=== PATIENT | male | born 1975 | race Hispanic/Latino ===

== ENCOUNTER 2017-03-28 19:40 | Emergency (ER) | payer MEDICARE, OTHER ==
[2017-03-28 19:40] VITALS: BMI 38.3
[2017-03-28 20:28] VITALS: BP 123/88; PULSE 101; RESP 20; TEMP 98.2; O2SAT 98
--- NOTE | 2017-03-28 20:52 | C.PDOC ---
History Of Present Illness 41 yo male come in for evaluation of Right eye redness noted since today afternoon after " scratch my eye". Pt sts, felt like eye lashes got into my right eye and I pulled eye". Otherwise, pt denies headache, dizziness, visual changes, blurry vision, double vision, floaters, eye discharges, recent illness , neck pain, CP, SOB, dyspnea, palpitation, abd. pain, N/V/D, denies nay other active complaints. Ambulate to ED for evaluation, not in any apparent distress. Time Seen by Provider: 03/28/17 20:42 Chief Complaint (Nursing): Eye Problem History Per: Patient Past Medical History Reviewed: Historical Data, Nursing Documentation, Vital Signs Vital Signs: Last Vital Signs Temp 98.2 F 03/28/17 20:23 Pulse 101 H 03/28/17 20:23 Resp 20 03/28/17 20:23 BP 123/88 03/28/17 20:23 Pulse Ox 98 03/28/17 20:54 - Medical History PMH: Bipolar Disorder, GERD, Schizophrenia Surgical History: Appendectomy Family History: States: Unknown Family Hx - Social History Hx Tobacco Use: No Hx Alcohol Use: No Hx Substance Use: No - Immunization History Hx Tetanus Toxoid Vaccination: No Hx Influenza Vaccination: No Hx Pneumococcal Vaccination: No Review Of Systems Except As Marked, All Systems Reviewed And Found Negative. Constitutional: Negative for: Fever, Chills Eyes: Positive for: Redness. Negative for: Pain, Vision Change ENT: Negative for: Throat Pain, Throat Swelling Cardiovascular: Negative for: Chest Pain, Palpitations, Edema, Light Headedness Respiratory: Negative for: Cough, Shortness of Breath, Wheezing Gastrointestinal: Negative for: Nausea, Vomiting, Abdominal Pain Musculoskeletal: Negative for: Neck Pain Neurological: Negative for: Weakness, Numbness, Altered Mental Status, Headache , Dizziness Physical Exam - Physical Exam Appears: Well, Non-toxic, No Acute Distress Skin: Normal Color, Warm, No Rash Head: Atraumatic, Normacephalic Eye(s): bilateral: PERRL, EOMI (NO PAIN OR LIMITATION ON EXTRAOCULAR MOVEMENT), right: Other (SMALL SUBCONJUNCTIVAL HEMORRHAGE AT 7 O'CLOCK, NO PERIOBIRLA EDEMA OR ERYTHEMA, NO TENDERNESS) Ear(s): Bilateral: Normal Nose: No Flaring, No Discharge Oral Mucosa: Moist, No Drooling Tongue: Normal Appearing, No Swelling Lips: Normal Appearing, No Swelling Throat: No Erythema, No Drooling Neck: Supple Cardiovascular: Rhythm Regular, No Murmur, No JVD, Other ((-) CAROTID BRUITS) Respiratory: No Decreased Breath Sounds, No Accessory Muscle Use, No Stridor, No Wheezing Gastrointestinal/Abdominal: Soft, No Tenderness Extremity: No Normal ROM, No Pedal Edema Neurological/Psych: Oriented x3, Normal Speech ED Course And Treatment O2 Sat by Pulse Oximetry: 98 Pulse Ox Interpretation: Normal Progress Note: On re-evaluation, pt is awake, alert, not in any apparent distress. Ambulatorty in Ed with stable gait. PUlseOx 98% RA. ENT: no acute findings. Left eye: small subconjuctival hemorrhage noted. no discharges. No pain or limitation on extraocular movement. No periorbital edema or erythema. VA: R20/25, L20/25, B/L 20/25 w/o correction. neck: SUpple, (-) JVD, (-) carotid bruits B?L. Lungs: CTA B/L, BS equal B/L. CVS: (+)S1S2, reg. Abd: benign. Neuorlogicaly intact. Patient advised. Ref. to Follow up with Opht in 1-2 days for re-eavl. return to ED if any worsening or new changes. Disposition Counseled Patient/Family Regarding: Diagnosis, Need For Followup - Disposition Referrals: Issa Carrera [Staff Provider] - Disposition Time: 20:49 Condition: STABLE Additional Instructions: ICE TO RIGHT EYE AREA AVOID RUBBING RIGHT EYE FOLLOW UP WITH OPHTHALMOLOGY IN 2-3 DAYS FOR RE-EVALUATION. RETURN TO ED IF ANY WORSENING OR NEW CHANGES. Instructions: Subconjunctival Hemorrhage (ED) Forms: [facility] (Gabonese) - Clinical Impression Clinical Impression: Subconjunctival hemorrhage
== END 2017-03-28 20:58 | disposition home or self-care (01) ==
LOC: C.ER 19:40
DX: H11.31 Conjunctival hemorrhage, right eye (principal)

== ENCOUNTER 2017-11-13 08:07 | Emergency (ER) | payer MEDICARE, OTHER ==
[2017-11-13 08:07] VITALS: BMI 38.3
[2017-11-13 08:18] VITALS: BP 143/99; PULSE 91; RESP 16; TEMP 98.3; O2SAT 96
--- NOTE | 2017-11-13 08:24 | C.PDOC ---
History Of Present Illness 42 yo male come in for evaluation of sore throat, dry cough since this AM. Otherwise, denies high fever, chills, headache, drooling, dysphagia, dyspnea, CP , SOB, wheezing, abd. pain, N/V/D, back pain, UTI sx. Ambulate to Ed for evaluation, not in any apparent distress. Time Seen by Provider: 11/13/17 08:17 Chief Complaint (Nursing): ENT Problem History Per: Patient Past Medical History Reviewed: Historical Data, Nursing Documentation, Vital Signs Vital Signs: Last Vital Signs Temp 98.3 F 11/13/17 08:10 Pulse 91 H 11/13/17 08:10 Resp 16 11/13/17 08:10 BP 143/99 H 11/13/17 08:10 Pulse Ox 96 11/13/17 08:10 - Medical History PMH: Bipolar Disorder, Bronchitis, GERD, HTN, Schizophrenia Surgical History: Appendectomy Family History: States: Unknown Family Hx - Social History Hx Tobacco Use: No Hx Alcohol Use: No Hx Substance Use: No - Immunization History Hx Tetanus Toxoid Vaccination: No Hx Influenza Vaccination: No Hx Pneumococcal Vaccination: No Review Of Systems Except As Marked, All Systems Reviewed And Found Negative. Constitutional: Negative for: Fever, Chills ENT: Positive for: Nose Congestion, Throat Pain. Negative for: Ear Discharge, Nose Discharge, Throat Swelling Cardiovascular: Negative for: Chest Pain, Palpitations Respiratory: Positive for: Cough. Negative for: Shortness of Breath, Wheezing Gastrointestinal: Negative for: Nausea, Vomiting, Abdominal Pain, Diarrhea Genitourinary: Negative for: Dysuria Musculoskeletal: Negative for: Neck Pain, Back Pain Skin: Negative for: Rash Neurological: Negative for: Headache, Dizziness Physical Exam - Physical Exam Appears: Well, Non-toxic, No Acute Distress Skin: Normal Color, Warm, Dry, No Rash Head: Normacephalic Eye(s): bilateral: PERRL Ear(s): Bilateral: Normal Nose: No Flaring, No Discharge Oral Mucosa: Moist, No Drooling Tongue: Normal Appearing Lips: Normal Appearing Throat: No Erythema, No Drooling Neck: Normal ROM, Trachea Midline, Supple Cardiovascular: Rhythm Regular, No Murmur, No JVD Respiratory: No Decreased Breath Sounds, No Accessory Muscle Use, No Stridor, No Wheezing Gastrointestinal/Abdominal: Soft, No Tenderness Back: No CVA Tenderness Extremity: Normal ROM, No Pedal Edema, No Deformity, No Swelling Neurological/Psych: Oriented x3, Normal Speech ED Course And Treatment O2 Sat by Pulse Oximetry: 96 Pulse Ox Interpretation: Normal Progress Note: On re-evaluation, pt is afebrile, hemodynamicaly stable. Ambulatory in ED with stable gait. PulsEOx 96% RA. ENT: no acute findings, uvula midline, no edema. neck: Supple, (-) meningeal sign. Lungs: CTA B/L, BS equal B/L. CVS: (+)S1S2, reg. Abd: benign, (-) guarding, (-) rebound, (-) RLQ tenderness. back: (-) CVA tenderness. Neurologicaly intact. Pt has clinical findings c/w URI. Pt advised. ref. to f/u with PMD in 2-3 days for re-eval. return to ED if any worsening or new changes. Disposition Counseled Patient/Family Regarding: Diagnosis, Need For Followup, Rx Given - Disposition Referrals: [facility] [Outside] Disposition: HOME/ ROUTINE Disposition Time: 08:21 Condition: STABLE Additional Instructions: Encourage fluids take medication as need Follow up with PMD in 2-3 days for re-evaluation. return to ED if any worsening or new changes. Prescriptions: Benzonatate [Tessalon Perle] 100 mg PO TID #14 capsule Ibuprofen [Motrin Tab] 600 mg PO TID #20 tab Instructions: Viral Upper Respiratory Infection, Adult (DC) Forms: [facility] (Mauritian), Work Excuse - Clinical Impression Clinical Impression: Upper respiratory infection
== END 2017-11-13 08:35 | disposition home or self-care (01) ==
LOC: C.ER 08:07
DX: J06.9 Acute upper respiratory infection, unspecified (principal)

== ENCOUNTER 2017-12-04 17:26 | Emergency (ER) | payer MEDICARE ==
[2017-12-04 17:27] VITALS: BMI 38.3
[2017-12-04 17:44] VITALS: O2SAT 97
--- NOTE | 2017-12-04 19:08 | C.PDOC ---
History Of Present Illness 42 year old male with a history of schizophrenia and TMJ presents to the emergency department with complaints of gingival pain and swelling which started today. Patient states that he has been having this pain intermittently, but recently it has been persistent. Patient states that he has not visited a dentist in years. He reports no difficulty breathing or swallowing, no chest pain or fever. Time Seen by Provider: 12/04/17 18:53 Chief Complaint (Nursing): Dental Pain History Per: Patient History/Exam Limitations: no limitations Onset/Duration Of Symptoms: Hrs Current Symptoms Are (Timing): Still Present Quality: Positive for: "Pain" Past Medical History Reviewed: Historical Data, Nursing Documentation, Vital Signs Vital Signs: Last Vital Signs Temp 97.6 F 12/04/17 19:43 Pulse 86 12/04/17 19:43 Resp 18 12/04/17 19:43 BP 132/88 12/04/17 19:43 Pulse Ox 97 12/04/17 21:29 - Medical History PMH: Bipolar Disorder, Bronchitis, GERD, HTN, Schizophrenia Denies: Chronic Kidney Disease Other PMH: TMJ Surgical History: Appendectomy Family History: States: Unknown Family Hx - Social History Hx Tobacco Use: No Hx Alcohol Use: No Hx Substance Use: No - Immunization History Hx Tetanus Toxoid Vaccination: No Hx Influenza Vaccination: Yes Hx Pneumococcal Vaccination: No Review Of Systems Except As Marked, All Systems Reviewed And Found Negative. Constitutional: Negative for: Fever ENT: Positive for: Mouth Pain (gingival pain), Mouth Swelling (gingival swelling ). Negative for: Other (difficulty swallowing) Cardiovascular: Negative for: Chest Pain Respiratory: Negative for: Cough, Shortness of Breath Physical Exam - Physical Exam Appears: Non-toxic, No Acute Distress Skin: Warm, Dry Head: Atraumatic, Normacephalic Eye(s): bilateral: Normal Inspection, EOMI Nose: Normal Oral Mucosa: Moist Tongue: No Swelling Lips: No Swelling Teeth: No Normal Dentition, Tender To Palpation (left mandibullar), Other (poor dentition) Gingiva: Erythema, Swelling, Tender ((+) diffuse tenderness with swelling and erythema to the gingiva, worse at the right maxilla with some bleeding), Bleeding (some bleeding) Throat: Normal, No Erythema, No Exudate Neck: Normal, Normal ROM, Supple Lymphatic: Normal Exam Chest: Symmetrical Cardiovascular: Rhythm Regular Respiratory: Normal Breath Sounds, No Accessory Muscle Use, No Rales, No Rhonchi , No Wheezing Neurological/Psych: Oriented x3, Normal Speech, Normal Cognition ED Course And Treatment O2 Sat by Pulse Oximetry: 97 (RA) Pulse Ox Interpretation: Normal Progress Note: Plan: Amoxil 500mg PO. Motrin 600mg PO. PT admits to not brushing regularly. Discussed hygeine and strict follow up. Patient instructed to follow-up with a dentist in 1-2 days. Disposition - Disposition Referrals: [facility] [Outside] Disposition: HOME/ ROUTINE Disposition Time: 19:23 Condition: STABLE Additional Instructions: [place] your teeth regularly. Use mouth wash. Follow up with the dentist on Thursday. Return to ER if symptoms persist or worsen. Prescriptions: Amoxicillin 875 mg PO BID #20 tablet Instructions: Dental Pain (DC) Forms: [facility] (Mohawk) - Clinical Impression Clinical Impression: Gingivitis, Pain, dental - PA / HAMMER FITTER / Resident Statement MD/DO has reviewed & agrees with the documentation as recorded. - Scribe Statement The provider has reviewed the documentation as recorded by the Scribe (Bayron Carroll) All medical record entries made by the Scribe were at my direction and personally dictated by me. I have reviewed the chart and agree that the record accurately reflects my personal performance of the history, physical exam, medical decision making, and the department course for this patient. I have also personally directed, reviewed, and agree with the discharge instructions and disposition.
[2017-12-04 19:45] VITALS: BP 132/88; PULSE 86; RESP 18; TEMP 97.6
== END 2017-12-04 19:59 | disposition home or self-care (01) ==
LOC: C.ER 17:26
DX: K05.10 Chronic gingivitis, plaque induced (principal); K08.89 Other specified disorders of teeth and supporting structures; I10 Essential (primary) hypertension; F20.9 Schizophrenia, unspecified

== ENCOUNTER 2018-02-09 08:12 | Emergency (ER) | payer MEDICARE ==
[2018-02-09 08:12] VITALS: BMI 38.3
[2018-02-09 08:18] VITALS: BP 139/98; PULSE 80; RESP 18; TEMP 98; O2SAT 97
--- NOTE | 2018-02-09 08:50 | C.PDOC ---
History Of Present Illness 42 yo male w/o significant PMHx come in for evaluation of cold sx since today AM. pt sts, " woke up today feeling sinusi". Otherwise, pt denies fever, chills, headache, dizziness, sore throat, neck pain, cough, drooling, dysphagia, dyspnea, SOB, wheezing, abd. pain, V/D, back pain, UTI sx. Ambulate to Ed for evaluation, not in nay apparent distress. Time Seen by Provider: 02/09/18 08:21 Chief Complaint (Nursing): Cough, Cold, Congestion History Per: Patient Past Medical History Reviewed: Historical Data, Nursing Documentation, Vital Signs Vital Signs: Last Vital Signs Temp 98 F 02/09/18 08:15 Pulse 80 02/09/18 08:15 Resp 18 02/09/18 08:15 BP 139/98 H 02/09/18 08:15 Pulse Ox 97 02/09/18 08:15 - Medical History PMH: Bipolar Disorder, Bronchitis, GERD, HTN, Schizophrenia Denies: Chronic Kidney Disease Surgical History: Appendectomy Family History: States: Unknown Family Hx - Social History Hx Tobacco Use: No Hx Alcohol Use: No Hx Substance Use: No - Immunization History Hx Tetanus Toxoid Vaccination: No Hx Influenza Vaccination: Yes Hx Pneumococcal Vaccination: No Review Of Systems Except As Marked, All Systems Reviewed And Found Negative. Constitutional: Negative for: Fever, Chills Eyes: Negative for: Vision Change ENT: Positive for: Nose Discharge. Negative for: Ear Pain, Ear Discharge, Throat Pain, Throat Swelling Cardiovascular: Negative for: Chest Pain, Edema, Light Headedness Respiratory: Negative for: Cough, Shortness of Breath, Wheezing Gastrointestinal: Negative for: Nausea, Vomiting, Abdominal Pain, Diarrhea Genitourinary: Negative for: Dysuria Skin: Negative for: Rash Neurological: Negative for: Headache, Dizziness Physical Exam - Physical Exam Appears: Well, Non-toxic, No Acute Distress Skin: Normal Color, Warm, Dry, No Rash Head: Normacephalic Eye(s): bilateral: PERRL Ear(s): Bilateral: Normal Nose: No Flaring, Discharge (scant B/L) Oral Mucosa: Moist Tongue: Normal Appearing Lips: Normal Appearing Throat: No Erythema, No Drooling Neck: Trachea Midline, Supple Cardiovascular: Rhythm Regular, No Murmur, No JVD Respiratory: No Decreased Breath Sounds, No Accessory Muscle Use, No Stridor, No Wheezing Gastrointestinal/Abdominal: Soft, No Tenderness, No Distention, No Guarding Back: No CVA Tenderness Extremity: Normal ROM, No Pedal Edema, No Deformity, No Swelling Neurological/Psych: Oriented x3, Normal Speech ED Course And Treatment O2 Sat by Pulse Oximetry: 97 Pulse Ox Interpretation: Normal Progress Note: On re-eval, pt is afebrile, hemodynamicaly stable. Non-toxic. Pulseox 97% RA. ENT: No acute findings. neck: Supple, (-) meningeal sign. Lungs: CTA B/L, BS equal B/L. CVS: (+)S1S2, reg. Abd: benign. Back: (-) CVA tenderness. Neuorlogicaly intact. pt has clinical findings c/w URI. Pt advised. ref. to f/u with PMD in 2-3 days for re-eval. return if any new changes. Disposition Counseled Patient/Family Regarding: Diagnosis, Need For Followup, Rx Given - Disposition Referrals: Alis Sharma APN-C [Advanced Practice Nurse] - Disposition: HOME/ ROUTINE Disposition Time: 08:47 Condition: STABLE Additional Instructions: Encourage fluids Take medication as prescribed Follow up with PMD in 2-3 days for re-evaluation. return if any new changes. Prescriptions: Ibuprofen [Motrin Tab] 600 mg PO TID #20 tab Loratadine/Pseudoephedrine [Allergy-Congestion Rlf 12H Tab] 1 each PO DAILY #7 tab.er.12h Instructions: Upper Respiratory Infection (ED) Forms: [facility] (Haitian), Work Excuse - Clinical Impression Clinical Impression: Upper respiratory infection
== END 2018-02-09 09:04 | disposition home or self-care (01) ==
LOC: C.ER 08:12
DX: J06.9 Acute upper respiratory infection, unspecified (principal); I10 Essential (primary) hypertension; F20.9 Schizophrenia, unspecified; F31.9 Bipolar disorder, unspecified

== ENCOUNTER 2018-03-18 18:31 | Emergency (ER) | payer MEDICARE ==
[2018-03-18 18:31] VITALS: BMI 38.3
[2018-03-18 18:37] VITALS: BP 127/82; PULSE 102; RESP 18; TEMP 98.3; O2SAT 95
--- NOTE | 2018-03-18 19:30 | C.PDOC ---
History Of Present Illness 42 y/o male presents to the ER complaining of right knee pain which began today. Patient states that he was trying to catch the bus and he may hyper-extended his right knee. He fell back on the curb. Patient reports that he did not hit his head and he was ambulatory at the time. He notes that he had a backpack on his back.Denies having headache, dizziness, visual changes, nausea. vomiting, parasthesias, and other injuries. Time Seen by Provider: 03/18/18 19:06 Chief Complaint (Nursing): Lower Extremity Problem/Injury History Per: Patient History/Exam Limitations: no limitations Onset/Duration Of Symptoms: Hrs Current Symptoms Are (Timing): Still Present Severity: Moderate Past Medical History Reviewed: Historical Data, Nursing Documentation, Vital Signs Vital Signs: Last Vital Signs Temp 98.3 F 03/18/18 18:34 Pulse 102 H 03/18/18 18:34 Resp 18 03/18/18 18:34 BP 127/82 03/18/18 18:34 Pulse Ox 95 03/18/18 18:34 - Medical History PMH: Bipolar Disorder, Bronchitis, GERD, HTN, Schizophrenia Denies: Chronic Kidney Disease Surgical History: Appendectomy Family History: States: No Known Family Hx - Social History Hx Tobacco Use: No Hx Alcohol Use: No Hx Substance Use: No - Immunization History Hx Tetanus Toxoid Vaccination: No Hx Influenza Vaccination: Yes Hx Pneumococcal Vaccination: No Review Of Systems Except As Marked, All Systems Reviewed And Found Negative. Eyes: Negative for: Vision Change Gastrointestinal: Negative for: Nausea, Vomiting Musculoskeletal: Positive for: Other (right knee pain). Negative for: Neck Pain Neurological: Negative for: Headache, Dizziness Physical Exam - Physical Exam Appears: Non-toxic, No Acute Distress Skin: Normal Color, Warm, Dry Head: Atraumatic, Normacephalic Eye(s): bilateral: Normal Inspection Neck: Supple Chest: Symmetrical Extremity: Normal ROM, Tenderness (tenderness along the anterior medial right knee), No Swelling, Other (no joint laxity in right knee) Pulses: Left Dorsalis Pedis: Normal (DP/PT +2), Right Dorsalis Pedis: Normal (DP/PT +2) Neurological/Psych: Oriented x3, Normal Speech ED Course And Treatment O2 Sat by Pulse Oximetry: 95 (RA) Pulse Ox Interpretation: Normal Medical Decision Making Medical Decision Making: Plan: --X-Ray-Right Knee Updates: 19:00 Preliminary reading of X-ray-Right Knee shows no fracture or dislocation. On re-evaluation, patient states feeling much better. Denies any pain or complaint at this time. Understands and agrees to immediately return to the ER if having increased swelling, pain, numbness/tingling, change in color or sensation, or any other concerning/worsening, new or continued symptoms. Understands and agrees to remove case/splint if having any of these sxs and see ortho/ER quickly. Pt agrees to make appt with ortho for 1-2 days from now. States will call [facility] for appointments. Patient states feeling better and would like to go home. Patient is very well appearing and non-toxic. Vital signs are stable. I discussed the results of the work-up, diagnosis and treatment. I recommended patient to use Tylenol or Motrin for pain at home. Written discharge instructions were provided to patient. Additional verbal instructions were given and discussed with patient. We discussed the importance of follow up with PCP/consultants. I also reiterated reasons to immediately return to the ER including: worsening in current symptoms and/or new, continued, or concerning symptoms. Pt understood and agreed. Disposition Counseled Patient/Family Regarding: Studies Performed, Diagnosis, Need For Followup - Disposition Disposition: HOME/ ROUTINE Disposition Time: 19:29 Condition: STABLE Additional Instructions: MATIAS SANCHEZ, thank you for letting us take care of you today. Your provider was Daniela Maya MD and you were treated for PT FELL RIGHT KNEE PAIN. The emergency medical care you received today was directed at your acute symptoms. If you were prescribed any medication, please fill it and take as directed. It may take several days for your symptoms to resolve. Return to the Emergency Department if your symptoms worsen, do not improve, or if you have any other problems. Please contact your doctor or call one of the physicians/clinics you have been referred to that are listed on the Patient Visit Information form that is included in your discharge packet. Bring any paperwork you were given at discharge with you along with any medications you are taking to your follow up visit. Our treatment cannot replace ongoing medical care by a primary care provider outside of the emergency department. Thank you for allowing the [facility] team to be part of your care today. If you had an X-Ray or CT scan: A Radiologist will review the ED reading if any change in treatment is needed we will contact you. If you had a blood, urine, or wound culture: It will take several days for the results, if any change in treatment is needed we will contact you. If you had an STI test: It will take 48 hours for the results. Please call after 1 week if you have not heard back. Instructions: Muscle Strain (DC) Forms: [facility] (Mozambican), General Discharge Instructions - POA Present On Arrival: None - Clinical Impression Clinical Impression: Muscle strain - Scribe Statement The provider has reviewed the documentation as recorded by the Eldaibe Sarina Brannon Provider Attestation: All medical record entries made by the Scribe were at my direction and personally dictated by me. I have reviewed the chart and agree that the record accurately reflects my personal performance of the history, physical exam, medical decision making, and the department course for this patient. I have also personally directed, reviewed, and agree with the discharge instructions and disposition.
--- NOTE | 2018-03-19 08:14 | RAD ---
Date of service: 03/18/2018 PROCEDURE: Right Knee Radiographs. HISTORY: injury COMPARISON: None. FINDINGS: BONES: Bone alignment and mineralization are normal. There is no acute displaced fracture or bone destruction. JOINTS: Normal. No osteoarthritis. JOINT EFFUSION: There is a small suprapatellar joint effusion. OTHER FINDINGS: None. IMPRESSION: No acute displaced fracture or dislocation.
== END 2018-03-18 19:33 | disposition home or self-care (01) ==
LOC: C.ER 18:31
DX: S86.911A Strain of unspecified muscle(s) and tendon(s) at lower leg level, right leg, initial encounter (principal); W19.XXXA Unspecified fall, initial encounter; Y92.480 Sidewalk as the place of occurrence of the external cause; F20.9 Schizophrenia, unspecified; F31.9 Bipolar disorder, unspecified; I10 Essential (primary) hypertension